=== PATIENT | female | born 2000 | race Two or more races ===

== ENCOUNTER 2021-07-23 23:34 | Inpatient (IN) | payer OTHER, SELFPAY ==
[2021-07-24 00:14] VITALS: BMI 23.8
[2021-07-24 00:20] VITALS: BP 122/76; PULSE 99; RESP 18; TEMP 36.6; O2SAT 95
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
[2021-07-24 08:23] VITALS: BP 116/86; PULSE 87; RESP 16; TEMP 36.6; O2SAT 99
[2021-07-24] MEDS: Ferrous Sulfate 324 MG TABLET.DR PO (08:27)
[2021-07-24] MEDS: Sertraline HCL 25 MG TABLET PO (08:28)
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
[2021-07-24 11:07] LABS: Estimated Average Glucose 111 mg/dL; Hemoglobin A1c % 5.5 %
[2021-07-24 11:28] LABS: TSH reflex Free T4 1.32 uIU/mL (0.32-4.0)
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
[2021-07-24 20:39] VITALS: BP 170/104; PULSE 101; RESP 20; TEMP 36.7; O2SAT 98
[2021-07-24] MEDS: Prazosin HCL 1 MG CAPSULE PO (20:39)
[2021-07-24] MEDS: hydrOXYzine HCL 25 MG TABLET PO (20:39)
[2021-07-24 22:45] VITALS: BP 145/82; PULSE 109; RESP 20; TEMP 36.3; O2SAT 99
[2021-07-24] MEDS: Acetaminophen 325 MG TABLET 650 MG PO (22:49)
[2021-07-25 06:00] VITALS: BP 131/87; PULSE 105; RESP 16; TEMP 36.9; O2SAT 99
--- NOTE | 2021-07-25 07:48 | PC.NURSE ---
At 2038, pt VS were taken for HS med Prozasin and bp was 170/104. I gave the Prozasin and returned later to retake VS, pt was also c/o headache. Pt asking if Prozasin could cause headache. I retook vs and bp was 145/82. I advised that prozasin could have a s/e of headache. I gave patient 650mg Tylenol. She appeared to sleep well throughout the shift.
[2021-07-25] MEDS: Ferrous Sulfate 324 MG TABLET.DR PO (09:05)
[2021-07-25] MEDS: Sertraline HCL 25 MG TABLET PO (09:05)
[2021-07-25] MEDS: Levothyroxine Sodium 25 MCG TABLET PO (09:06)
[2021-07-25 09:31] LABS: Alanine Aminotransferase 19 U/L (0-31); Albumin Level 4.5 g/dL (3.5-5.0); Alkaline Phosphatase 95 U/L (39-117); Anion Gap 11 (12-20); Aspartate Amino Transferase 16 U/L (5-31); Bilirubin Total 0.7 mg/dL (0.0-1.0); Blood Urea Nitrogen 10 mg/dL (9-16); Calcium 10.3 mg/dL (8.4-10.2); Carbon Dioxide 26 mmol/L (22-29); Chloride 103 mmol/L (96-108); Cholesterol 144 mg/dL; Creatinine Clr Calc Pharmacy 95.9; Estimated Glomerular Filt Rate > 60; Glucose Fasting 102 mg/dL (60-99); HDL Cholesterol 39 mg/dL; LDL Cholesterol Calculated 92 mg/dl; Potassium 4.4 mmol/L (3.3-5.1); Sodium 136 mmol/L (135-145); Total Protein 7.8 g/dL (6.5-8.0); Triglycerides 67 mg/dL
[2021-07-25] MEDS: Ibuprofen 400 MG TABLET PO (11:43)
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
[2021-07-25 14:17] LABS: Folate 18.2 ng/mL (> or = 4.0); Vitamin B12 454 pg/mL (200-900)
[2021-07-25 22:35] VITALS: BP 129/90; PULSE 84; RESP 18; TEMP 36.6; O2SAT 99
[2021-07-25] MEDS: Prazosin HCL 1 MG CAPSULE 2 MG PO (22:52)
[2021-07-26 10:02] VITALS: BP 116/70; PULSE 114; RESP 17; TEMP 36.4; O2SAT 99
[2021-07-26] MEDS: Ferrous Sulfate 324 MG TABLET.DR PO (10:04)
[2021-07-26] MEDS: Levothyroxine Sodium 25 MCG TABLET PO (10:04)
[2021-07-26] MEDS: Sertraline HCL 50 MG TABLET PO (10:04)
[2021-07-26 12:21] VITALS: BMI 27.1
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
[2021-07-26] MEDS: Prazosin HCL 1 MG CAPSULE 2 MG PO (21:48)
[2021-07-26 21:50] VITALS: BP 125/77; PULSE 95; RESP 16; TEMP 36.8; O2SAT 98
[2021-07-27] MEDS: Ferrous Sulfate 324 MG TABLET.DR PO (08:45)
[2021-07-27] MEDS: Levothyroxine Sodium 25 MCG TABLET PO (08:45)
[2021-07-27] MEDS: Sertraline HCL 50 MG TABLET PO (08:47)
[2021-07-27 08:50] VITALS: BP 152/88; PULSE 115; RESP 20; TEMP 36.3; O2SAT 99
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
[2021-07-27 20:26] VITALS: BP 130/92; PULSE 94; RESP 18; TEMP 36.7; O2SAT 98
[2021-07-27] MEDS: Prazosin HCL 1 MG CAPSULE 2 MG PO (21:39)
[2021-07-28] MEDS: Levothyroxine Sodium 25 MCG TABLET PO (06:20)
[2021-07-28] MEDS: Ferrous Sulfate 324 MG TABLET.DR PO (08:35)
[2021-07-28] MEDS: Sertraline HCL 50 MG TABLET PO (08:35)
[2021-07-28 08:38] VITALS: BP 131/80; PULSE 115; RESP 18; TEMP 36.4; O2SAT 97
--- NOTE | 2021-07-28 17:18 | PC.NURSE ---
Patient was found by MHA in male patient's room, sitting on the side of his bed. Patient states that she was interested in a book he had. Patient advised that she cannot be in any other patient's room other than her own for the sake of safety. Patient smiled and stated 'I understand.' Provider notified by recharger and patient placed on 5 minute checks.
[2021-07-28 20:27] VITALS: BP 141/84; PULSE 111; RESP 16; TEMP 37.1; O2SAT 97
[2021-07-28] MEDS: Prazosin HCL 1 MG CAPSULE 2 MG PO (22:09)
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
[2021-07-29] MEDS: Levothyroxine Sodium 25 MCG TABLET PO (07:02)
[2021-07-29 08:23] VITALS: BP 113/64; PULSE 90; RESP 18; TEMP 36.6; O2SAT 99
[2021-07-29] MEDS: Ferrous Sulfate 324 MG TABLET.DR PO (08:34)
[2021-07-29] MEDS: Sertraline HCL 50 MG TABLET PO (08:34)
[2021-07-29] MEDS: risperiDONE 0.5 MG TABLET PO ×2 (10:14→20:14)
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
[2021-07-29] MEDS: Prazosin HCL 1 MG CAPSULE 2 MG PO (20:14)
[2021-07-29 20:22] VITALS: BP 130/79; PULSE 88; RESP 16; O2SAT 98
[2021-07-29] MEDS: QUEtiapine Fumarate 100 MG TABLET PO (21:45)
[2021-07-30 09:00] VITALS: BP 121/77; PULSE 129; RESP 16; TEMP 36.4; O2SAT 97
[2021-07-30] MEDS: risperiDONE 0.5 MG TABLET PO ×2 (09:35→22:54)
[2021-07-30] MEDS: Levothyroxine Sodium 25 MCG TABLET PO (09:35)
[2021-07-30] MEDS: Sertraline HCL 50 MG TABLET PO (09:35)
[2021-07-30] MEDS: Ferrous Sulfate 324 MG TABLET.DR PO (09:36)
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
[2021-07-30 22:51] VITALS: BP 133/87; PULSE 110; RESP 16; TEMP 36.6; O2SAT 96
[2021-07-30] MEDS: Prazosin HCL 1 MG CAPSULE 2 MG PO (22:55)
[2021-07-31 08:35] VITALS: BP 137/83; PULSE 99; RESP 16; TEMP 36.5; O2SAT 99
[2021-07-31] MEDS: Ferrous Sulfate 324 MG TABLET.DR PO (08:39)
[2021-07-31] MEDS: Levothyroxine Sodium 25 MCG TABLET PO (08:39)
[2021-07-31] MEDS: Sertraline HCL 50 MG TABLET PO (08:39)
[2021-07-31] MEDS: risperiDONE 0.5 MG TABLET PO (08:39)
[2021-07-31 21:30] VITALS: BP 136/90; PULSE 92; RESP 16; TEMP 36.6; O2SAT 98
[2021-07-31] MEDS: Prazosin HCL 1 MG CAPSULE 2 MG PO (21:36)
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
[2021-08-01] MEDS: Levothyroxine Sodium 25 MCG TABLET PO (05:40)
[2021-08-01 08:40] VITALS: BP 132/81; PULSE 100; RESP 20; TEMP 36.8; O2SAT 97
[2021-08-01] MEDS: Ferrous Sulfate 324 MG TABLET.DR PO (08:55)
[2021-08-01] MEDS: Sertraline HCL 50 MG TABLET PO (08:55)
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
[2021-08-01 21:27] VITALS: BP 130/88; PULSE 100; RESP 16; TEMP 36.6; O2SAT 96
[2021-08-01] MEDS: Prazosin HCL 1 MG CAPSULE 2 MG PO (21:30)
[2021-08-01] MEDS: traZODone HCL 50 MG TABLET PO (21:30)
[2021-08-02] MEDS: Levothyroxine Sodium 25 MCG TABLET PO (06:36)
[2021-08-02 07:00] VITALS: BMI 26.6
[2021-08-02 09:40] VITALS: BP 119/75; PULSE 117; RESP 18; TEMP 36.6; O2SAT 96
[2021-08-02] MEDS: Ferrous Sulfate 324 MG TABLET.DR PO (09:41)
[2021-08-02] MEDS: Sertraline HCL 50 MG TABLET PO (09:41)
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
[2021-08-02] MEDS: Prazosin HCL 1 MG CAPSULE 2 MG PO (20:45)
[2021-08-02 20:49] VITALS: BP 130/91; PULSE 90; RESP 15; TEMP 36.4; O2SAT 98
--- NOTE | 2021-08-03 | ECG_ITS ---
Test Reason : rhythm check Blood Pressure : / mmHG Vent. Rate : 081 BPM Atrial Rate : 081 BPM P-R Int : 174 ms QRS Dur : 084 ms QT Int : 382 ms P-R-T Axes : 074 054 038 degrees QTc Int : 443 ms Normal sinus rhythm Normal ECG No previous ECGs available Referred By: Smiley Hammer Electronically Signed By:Rei Gerber
[2021-08-03] MEDS: Levothyroxine Sodium 25 MCG TABLET PO (06:11)
[2021-08-03 09:21] VITALS: BP 112/74; PULSE 105; RESP 18; TEMP 36.7; O2SAT 98
[2021-08-03] MEDS: Sertraline HCL 50 MG TABLET PO (09:26)
[2021-08-03] MEDS: Ferrous Sulfate 324 MG TABLET.DR PO (09:26)
[2021-08-03] MEDS: LORazepam 0.5 MG TABLET PO ×2 (12:11→20:20)
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
[2021-08-03 20:15] VITALS: BP 117/91; PULSE 105; RESP 16; TEMP 36.2; O2SAT 97
[2021-08-03] MEDS: Prazosin HCL 1 MG CAPSULE 2 MG PO (20:20)
[2021-08-04 06:00] VITALS: BP 119/73; PULSE 111; RESP 16; TEMP 36.6; O2SAT 99
[2021-08-04] MEDS: LORazepam 0.5 MG TABLET PO (10:36)
[2021-08-04] MEDS: Sertraline HCL 50 MG TABLET PO (10:36)
[2021-08-04] MEDS: Ferrous Sulfate 324 MG TABLET.DR PO (10:36)
[2021-08-04] MEDS: Levothyroxine Sodium 25 MCG TABLET PO (10:36)
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
[2021-08-04 19:28] VITALS: BP 130/85; PULSE 98; RESP 18; TEMP 36.6; O2SAT 98
[2021-08-04] MEDS: Prazosin HCL 1 MG CAPSULE 2 MG PO (21:03)
[2021-08-05 06:00] VITALS: BP 120/72; PULSE 100; RESP 15; TEMP 36.6; O2SAT 96
[2021-08-05] MEDS: Ferrous Sulfate 324 MG TABLET.DR PO (09:47)
[2021-08-05] MEDS: Levothyroxine Sodium 25 MCG TABLET PO (09:47)
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
[2021-08-05] MEDS: LORazepam 0.5 MG TABLET PO ×2 (15:22→22:03)
[2021-08-05 20:26] VITALS: BP 126/89; PULSE 110; RESP 18; TEMP 36.7; O2SAT 98
[2021-08-05] MEDS: OLANZapine 5 MG TABLET PO (22:03)
[2021-08-05] MEDS: Prazosin HCL 1 MG CAPSULE 2 MG PO (22:07)
[2021-08-05 22:08] VITALS: BP 122/86; PULSE 104; RESP 16
[2021-08-06] MEDS: Levothyroxine Sodium 25 MCG TABLET PO (06:42)
[2021-08-06] MEDS: Sertraline HCL 50 MG TABLET PO (08:21)
[2021-08-06] MEDS: LORazepam 0.5 MG TABLET PO ×2 (08:21→22:01)
[2021-08-06] MEDS: Ferrous Sulfate 324 MG TABLET.DR PO (08:21)
[2021-08-06 08:24] VITALS: BP 102/64; PULSE 92; RESP 16; TEMP 36.3; O2SAT 99
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
[2021-08-06 22:00] VITALS: BP 112/67; PULSE 112; RESP 18; TEMP 36.7; O2SAT 97
[2021-08-06] MEDS: OLANZapine 5 MG TABLET PO (22:00)
[2021-08-06] MEDS: Prazosin HCL 1 MG CAPSULE 2 MG PO (22:01)
[2021-08-07] MEDS: Levothyroxine Sodium 25 MCG TABLET PO (06:30)
[2021-08-07 09:59] VITALS: BP 107/60; PULSE 105; RESP 17; TEMP 36.6; O2SAT 98
[2021-08-07] MEDS: Sertraline HCL 50 MG TABLET PO (10:03)
[2021-08-07] MEDS: Ferrous Sulfate 324 MG TABLET.DR PO (10:03)
[2021-08-07] MEDS: LORazepam 0.5 MG TABLET PO ×2 (10:06→22:09)
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
[2021-08-07 20:40] VITALS: BP 125/84; PULSE 100; RESP 18; TEMP 36.2; O2SAT 98
[2021-08-07] MEDS: Prazosin HCL 1 MG CAPSULE 2 MG PO (22:09)
[2021-08-07] MEDS: OLANZapine 5 MG TABLET PO (22:09)
[2021-08-08] MEDS: Levothyroxine Sodium 25 MCG TABLET PO (06:44)
[2021-08-08 09:00] VITALS: BP 131/79; PULSE 85; RESP 16; TEMP 36.8; O2SAT 98
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
[2021-08-08] MEDS: Ferrous Sulfate 324 MG TABLET.DR PO (11:12)
[2021-08-08] MEDS: Sertraline HCL 50 MG TABLET PO (11:12)
[2021-08-08] MEDS: LORazepam 0.5 MG TABLET PO ×2 (11:12→21:04)
[2021-08-08 18:00] VITALS: BP 130/78; PULSE 100; RESP 18; TEMP 36.6; O2SAT 99
[2021-08-08] MEDS: OLANZapine 5 MG TABLET PO (21:04)
[2021-08-08] MEDS: Prazosin HCL 1 MG CAPSULE 2 MG PO (21:05)
[2021-08-09] MEDS: Levothyroxine Sodium 25 MCG TABLET PO (06:24)
[2021-08-09] MEDS: LORazepam 0.5 MG TABLET PO (09:16)
[2021-08-09] MEDS: Ferrous Sulfate 324 MG TABLET.DR PO (09:16)
[2021-08-09] MEDS: Sertraline HCL 50 MG TABLET PO (09:16)
[2021-08-09 09:33] VITALS: BP 122/80; PULSE 86; RESP 18; TEMP 36.4; O2SAT 99
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
--- NOTE | 2021-08-09 11:27 | PC.NURSE ---
Patient reports she feels ready for discharge, affect bright I'm very excited to leave. Patient denies SI/HI, patient denies AH/VH. Reviewed discharge instructions w/ patient: patient verbalized understanding, denies any concerns or questions. Patient reports her aunt will assist her in obtaining medications and other transportation issues as needed.
== END 2021-08-09 11:20 | disposition home or self-care (01) | DRG 751 ==
PROVIDERS: Psychiatry & Neurology Psychiatry; Admitting Provider Psychiatry & Neurology Psychiatry; Visit Provider Social Worker
DX: F33.1 Major depressive disorder, recurrent, moderate (principal); F43.10 Post-traumatic stress disorder, unspecified; Z62.810 Personal history of physical and sexual abuse in childhood; Z87.891 Personal history of nicotine dependence; Z79.890 Hormone replacement therapy; Z79.899 Other long term (current) drug therapy
CPT/HCPCS: 36415; 80053; 80061; 82607; 82746; 83036; 84443; 93005